=== PATIENT | female | born 1955 | race Caucasian/White ===

== ENCOUNTER 2018-12-19 15:40 | Emergency (ER) | payer OTHER, SELFPAY ==
[2018-12-19] MEDS ORDERED: Acetaminophen 500 MG TAB ONE (16:27)
--- NOTE | 2018-12-19 16:41 | CT ---
Exam: Head CT without contrast HISTORY: Headache COMPARISON: none FINDINGS: Hemorrhage: No intraparenchymal hemorrhage or extra-axial hematoma. Brain parenchyma: Cortical felix-white matter differentiation is preserved. No mass effect or midline shift. Basilar cisterns are patent. Ventricular system: Ventricles and sulci are patent and symmetric. Calvarium: Intact. Sinuses and mastoid air cells: Adequate aeration. IMPRESSION: No acute intracranial process.
[2018-12-19] MEDS ORDERED: Ketorolac Tromethamine 30 MG/ML VIAL ONE (16:56)
== END 2018-12-19 17:25 | disposition home or self-care (01) ==
LOC: SCSER 15:40
DX: R51 Headache (principal)
CPT/HCPCS: 70450; 96372; J1885